=== PATIENT | male | born 1965 | race Two or more races ===

== ENCOUNTER 2020-05-01 10:00 | Emergency (ER) | payer OTHER ==
[~2020-05-01] VITALS: Ht 165.1 cm; Wt 81.6 kg
[2020-05-01 10:10] VITALS: BP 139/100
--- NOTE | 2020-05-03 05:10 | NUR ---
REC'D CALL BY TEE FROM LAB, NEG COVID RESULTS. AWARE
== END 2020-05-01 10:50 | disposition home or self-care (01) ==
LOC: ER 10:00
DX: Z03.818 Encounter for observation for suspected exposure to other biological agents ruled out (principal); J45.909 Unspecified asthma, uncomplicated; I10 Essential (primary) hypertension
CPT/HCPCS: 99283; U0003; C9803-CS